=== PATIENT | male | born 1955 | race Caucasian/White ===

== ENCOUNTER 2023-10-28 06:25 | Day surgery (SDC) | payer MEDICARE, OTHER ==
[2023-10-13 11:34] VITALS: BP 121/78
[~2023-10-28] VITALS: Ht 177.8 cm; Wt 75.0 kg
--- NOTE | ~2023-10-28 | OR ---
[facility] [address] [place], [place] [address] [place] DATE OF OPERATION: 10/28/2023 SURGEON: Christy Maddox MD, PH.D. PREOPERATIVE DIAGNOSIS: Prostate adenocarcinoma. POSTOPERATIVE DIAGNOSIS: Prostate adenocarcinoma. PROCEDURE: Rectal ultrasound-guided implantation of radioactive iodine-125 seeds into the prostate gland. ANESTHESIA: General. ESTIMATED BLOOD LOSS: Minimal. COMPLICATIONS: None. ANTIBIOTICS: IV levofloxacin. INDICATIONS FOR PROCEDURE: Get Villareal is a 68-year-old gentleman who was diagnosed with a stage T1c, Valdez grade 3+4=7, PSA 6.81, prostate adenocarcinoma in 2021. He was followed with active surveillance, but his PSA kendy up to 13.98. The patient was treated with neoadjuvant and concurrent hormone therapy along with definitive radiation therapy to a dose of 45 Gy to the pelvic lymph nodes, seminal vesicles, and prostate gland ending on October 19, 2023. He now presents for his radioactive seed implant boost. PRESCRIPTION DOSE: 110 Gy with iodine-125 seeds with 0.255 millicurie activity. OPERATIVE DESCRIPTION: Following induction of adequate of adequate anesthesia, the patient was placed in the treatment planning dorsal lithotomy position. The perineum was prepped with Betadine PATIENT NAME: GET VILLAREAL OPERATIVE REPORT DATE OF : 53 REPORT #: [id number] PHYSICIAN: CHRISTY MADDOX MD PCP: CANDI DE JESUS DO REPORT IS CONFIDENTIAL AND NOT TO BE RELEASED WITHOUT AUTHORIZATION [facility] [address], [place] [address] [place] and a Hoffman catheter was inserted into the bladder without difficulty. The scrotum was elevated onto the abdominal wall and secured with Ioban. The fixation support system was fixed to the table and the ultrasound probe was affixed to the system. Transrectal ultrasound examination of the prostate was performed with a 6 megahertz probe, taking sagittal and transverse views to localize the prostate gland and to make sure the images conformed to the preoperative plan. Once the proper angulation and position were obtained, the apparatus was fixed in position. The template was then attached to the apparatus. Then, individual preloaded needles were inserted, one needle at a time through the template and perineal skin and into the prostate gland according to the preoperative plan. Each individual needle was identified on the ultrasound images and inserted into position as close as possible to the pretreatment plan on axial images. Two anchor needles were placed initially to help stabilize the prostate gland. Then, starting anteriorly, one row of needles were placed first. The proper depth of each needle was then confirmed on sagittal images and also by measuring the distance from the template to the hub of each needle with a ruler. Then, needles were slowly withdrawn with the stylet in place so that the stranded seeds were placed in the prostate gland in the proper position. Then, subsequently, rows of needles were placed, one at a time with placement of all the seeds from each row before proceeding to the next row. AP pelvic x-rays were taken periodically to confirm the proper position of the radioactive seeds. There was some mild pubic arch interference, and this was resolved by moving the patient's knees to an exaggerated lithotomy position. The treatment plan called for 68 seeds to be implanted, and a total of 68 seeds were placed into the prostate gland using 20 needles for a total activity of 17.34 millicuries. Following the insertion of the seeds, an AP pelvic x-ray was taken, which revealed seeds to be in the proper position within the pelvis. The patient then had a cystoscopy performed by Dr. Handley (see separate operative report) with no seeds seen in the urethra or bladder. There were trabeculations within the bladder and numerous small bladder stones seen primarily within these trabeculations. Some of these bladder stones were removed by Dr. Handley. The patient tolerated the procedure well, was taken to the recovery room in good condition. The patient will have a voiding trial prior to discharge. The patient will follow with me in one month, and we will obtain a CT scan of the pelvis performed for post implant asymmetry. He was told to phone our office if he has any difficulties. PATIENT NAME: GET VILLAREAL OPERATIVE REPORT DATE OF : 53 REPORT #: [id number] PHYSICIAN: CHRISTY MADDOX MD PCP: CANDI DE JESUS DO REPORT IS CONFIDENTIAL AND NOT TO BE RELEASED WITHOUT AUTHORIZATION [address] [address] [place] CONDITION: Stable. Christy Maddox MD, PH.D. LOPEZ/MODL /[id number] cc: MD Candi Gifford DO Copies: ~ PATIENT NAME: GET VILLAREAL OPERATIVE REPORT DATE OF : 53 REPORT #: [id number] PHYSICIAN: CHRISTY MADDOX MD PCP: CANDI DE JESUS DO REPORT IS CONFIDENTIAL AND NOT TO BE RELEASED WITHOUT AUTHORIZATION
[~2023-10-28 06:25] MED LIST: LACTATED RINGER'S 1,000 ML IV SCH
--- NOTE | 2023-10-28 06:25 | NUR ---
PT ARRIVED FOR OUTPATIENT PROSTATE BEAD SEEDING. PTS SISTER AT BEDSIDE.
[2023-10-28 06:33] VITALS: BP 154/73
[2023-10-28] MEDS ORDERED: IBUPROFEN600 MG PO (06:36)
[2023-10-28] MEDS ORDERED: FLOMAX0.4 MG PO (06:37)
[2023-10-28] MEDS ORDERED: LOSARTAN POTASS25 MG PO (06:49)
[2023-10-28] MEDS ORDERED: NEURONTIN300 MG PO (06:50)
[2023-10-28] MEDS ORDERED: LOVASTATIN20 MG PO (06:51)
[2023-10-28] MEDS ORDERED: VITAMIN D-40010 MCG PO (06:52)
[2023-10-28] MEDS ORDERED: levoFLOXacin 500 MG/100 ML BAG IV SCH ×2 (07:00→09:00)
[2023-10-28] MEDS ORDERED: LIDOCAINE HCL 1% 5 ML SDV INJ ONE (07:00)
[2023-10-28] MEDS ORDERED: IBLOOD GLUCOSE TEST STRIP 1 EA TEST VI PRN ×2 (07:00→10:15)
--- NOTE | 2023-10-28 07:19 | NUR ---
VISITED DURING SPIRITUAL CARE HOURS. PROVIDED HOSPITALITY; SUPPORTIVE PRESENCE. PT EXPRESSED GRATITUDE.
[2023-10-28] MEDS ORDERED: KETAMINE in NS 50 MG/5 ML SYR ONE (07:53)
[2023-10-28] MEDS ORDERED: fentaNYL citrate 100 MCG/2 ML VIAL ONE (07:53)
[2023-10-28] MEDS ORDERED: SODIUM CHLORIDE 0.9% 40 ML IV ONE (07:54)
[2023-10-28] MEDS ORDERED: MAGNESIUM SULFATE 1 GM/2 ML VIAL ONE (07:54)
[2023-10-28] MEDS ORDERED: dexmedeTOMIDine HCl 200 MCG/2 ML VIAL ONE (07:54)
[2023-10-28] MEDS ORDERED: DEXAMETHASONE SOD PHOS 4 MG/ML VIAL ONE (07:54)
[2023-10-28] MEDS ORDERED: LIDOCAINE HCL 2% 5 ML SDV ONE (07:54)
[2023-10-28] MEDS ORDERED: ondansetron HCL 4 MG/2 ML VIAL ONE (07:54)
[2023-10-28] MEDS ORDERED: propofoL 200 MG/20 ML VIAL ONE (07:54)
[2023-10-28] MEDS ORDERED: ACETAMINOPHEN 1,000 MG/100 ML VIAL ONE (07:54)
--- NOTE | 2023-10-28 08:15 | NUR ---
PT TO OR VIA STRETCHER.
[2023-10-28] MEDS ORDERED: ePHEDrine sulfate 50 MG/ML AMP ONE (08:47)
[2023-10-28] MEDS ORDERED: ondansetron HCL 4 MG/2 ML VIAL IV PRN ×2 (10:15→10:45)
[2023-10-28] MEDS ORDERED: KETOROLAC TROMETHAMINE 30 MG/ML VIAL IV PRN (10:15)
[2023-10-28] MEDS ORDERED: NALOXONE HCL 0.4 MG SYR IV PRN (10:15)
[2023-10-28] MEDS ORDERED: droPERidol 5 MG/2 ML VIAL IV PRN (10:15)
--- NOTE | 2023-10-28 10:28 | NUR ---
10/28/23 Jessica8 Latha Finney 1014- PT ARRIVES TO PACU, SEMI ALBA POSITION NON REACTIVE TO STIMULUS. PT ON ROOM AIR, BREATHING EVEN AND NON LABORED. LR INFUSING TO RFA IV. ABD SOFT, NON DISTENDED. NO DRAINAGE NOTED FROM SITE OR PENIS. ALL MONITORS IN PLACE, WILL CONTINUE TO MONITOR. 1023- PT WAKES EASILY TO VERBAL STIMULI, OPENS EYES AND LOOKS AROUND. DENIES PAIN AND NAUSEA. FOLLOWS COMMANDS TO DEEP BREATH AND COUGH. NO SIGNS OF DISTRESS. WILL CONTINUE TO MONITOR.
[2023-10-28 10:40] VITALS: BP 102/74
[2023-10-28] MEDS ORDERED: ONDANSETRON 4 MG TAB ODT SL PRN (10:45)
[2023-10-28] MEDS ORDERED: HYDROCODONE/ACETA 5/325 TAB PO PRN (10:45)
--- NOTE | 2023-10-28 10:47 | NUR ---
PT ARRIVED BACK TO DAY SURGERY VIA BED. PT AWAKE ALERT AND ORIENTED. PT GIVEN FRESH WATER AND CRACKERS. PT DUE TO VOID. URINAL AT BEDSIDE. SISTER IN ROOM.
--- NOTE | 2023-10-28 10:50 | NUR ---
PT VOIDED 125ML OF CLEAR YELLOW URINE.
[2023-10-28 11:49] VITALS: BP 114/62
--- NOTE | 2023-10-28 11:55 | NUR ---
PT UP TO BATHROOM. VOIDED AT THIS TIME. PT TOLERATED AMBULATION WELL.
--- NOTE | 2023-10-28 12:00 | NUR ---
PT DISCHARGED TO HOME. DISCHARGE INSTRUCTIONS GIVEN ON MEDICATION, FOLLOW-UP, WHEN TO CONTACT THE MD, ACTIVITY, AND DIET. PT VERBALIZED UNDERSTANDING. PT LEFT FOR HOME VIA WHEELCHAIR WITH ALL BELONGINGS.
== END 2023-10-28 12:00 | disposition home or self-care (01) ==
LOC: DS 06:25 → EDSTATUS 07:30 → DS 07:30 → US 07:30 → DS 12:00
PROVIDERS: ATTEND Radiology Radiation Oncology
PROC: 0TCB8ZZ Extirpation of Matter from Bladder, Via Natural or Artificial Opening Endoscopic (ICD-10-PCS; principal; 2023-10-28 08:00)
PROC: 0VH43YZ Insertion of Other Device into Prostate and Seminal Vesicles, Percutaneous Approach (ICD-10-PCS; principal; 2023-10-28 08:00)
DX: C61 Malignant neoplasm of prostate (principal); N21.0 Calculus in bladder; N32.0 Bladder-neck obstruction; N32.3 Diverticulum of bladder; I10 Essential (primary) hypertension; Z79.82 Long term (current) use of aspirin; Z79.899 Other long term (current) drug therapy
CPT/HCPCS: 76000; 77470; 82365; C2638; J0131; J1100; J1956; J2001; J2405; J2704; J3010; J3475; J3490; J7121